=== PATIENT | female | born 1965 | race Caucasian/White ===

== ENCOUNTER → 2017-08-28 | Outpatient (CLI) | payer BC ==
[2005-07-25 07:14] VITALS: PULSE 105; TEMP 97.8
[~2017-08-28] MED LIST: PERCOCET 5/321 UDTAB PO
== END ==
LOC: MC.RAD 08:50
DX: Z12.31 Encounter for screening mammogram for malignant neoplasm of breast (principal)

== ENCOUNTER → 2018-10-17 | Outpatient (CLI) | payer BC ==
[2005-07-25 07:14] VITALS: PULSE 105; TEMP 97.8
== END ==
LOC: MC.RAD 13:38
DX: Z12.31 Encounter for screening mammogram for malignant neoplasm of breast (principal)

== ENCOUNTER → 2020-12-04 | Outpatient (CLI) | payer BC ==
[2005-07-25 07:14] VITALS: PULSE 105; TEMP 97.8
== END ==
LOC: MC.RAD 11:22
DX: Z12.31 Encounter for screening mammogram for malignant neoplasm of breast (principal)

== ENCOUNTER → 2021-12-29 | Outpatient (CLI) | payer BC | LOC: MC.RAD 06:59 | DX: N60.02 Solitary cyst of left breast (principal); Z98.82 Breast implant status ==

== ENCOUNTER 2022-01-13 05:32 | Day surgery (SDC) | payer BC ==
[~2022-01-13] VITALS: Ht 162.6 cm; Wt 61.9 kg
[2022-01-13 05:58] VITALS: BP 136/79; PULSE 91; TEMP 97.4
[2022-01-13 08:00] VITALS: BP 111/58; PULSE 65; TEMP 97.6
[2022-01-13] MEDS ORDERED: NORCO 325 MG-51 TAB PO (08:06)
[2022-01-13 08:15] VITALS: BP 120/69; PULSE 64
[2022-01-13 08:30] VITALS: BP 122/68; PULSE 65
--- NOTE | 2022-01-13 09:10 | NUR ---
0800 PT RETURNED TO [facility] VIA CART. ALERT AND ORIENTED. MONITORS ATTACHED, INTERVALS AND ALARMS SET. PT DENIES PAIN OR NAUSEA. VSS. OP SITE CLEAN AND DRY. COFFEE, JUICE, WATER AND MUFFIN PROVIDED. AT BEDSIDE. CALL LIGHT IN REACH. 0815 VSS. PT TOLERATING FOOD AND DRINK WELL. 0830 VSS. PT DENIES DISCOMFORT. REVIEWED DISCHARGE INSTRUCTIONS AND EDUCATION PACKET, ANSWERED ALL QUESTIONS. IV REMOVED WITHOUT COMPLCIATION. PT ALLOWED TO DRESS. 0910 PT TRANSFERED VIA WHEELCHAIR TO PERSONAL VEHICLE TO BE DRIVEN HOME BY .
== END 2022-01-13 09:10 | disposition home or self-care (01) ==
LOC: SDCO 05:32
DX: N60.82 Other benign mammary dysplasias of left breast (principal); D05.02 Lobular carcinoma in situ of left breast
CPT/HCPCS: A4648; J0690; J1100; J1885; J2405; J2704; J3010; J7120

== ENCOUNTER → 2024-04-30 | Outpatient (CLI) | payer OTHER ==
[2005-07-25 07:14] VITALS: TEMP 97.8
[~2024-04-30] MED LIST changes: +NORCO 325 MG-51 TAB PO
== END ==
LOC: MC.RAD 10:52
DX: Z12.31 Encounter for screening mammogram for malignant neoplasm of breast (principal)